=== PATIENT | female | born 1950 | race Two or more races ===

== ENCOUNTER → 2017-04-01 | Outpatient (REF) | payer MEDICARE, OTHER ==
[2017-04-01 14:56] LABS: ALBUMIN 4.3 GM/DL (3.2-5.2); ALBUMIN/GLOBULIN RATIO 1.43 (1.00-1.93); ALKALINE PHOSPHATASE 79 U/L (45-117); ALT/SGPT 19 U/L (12-78); ANION GAP 8 MEQ/L (8-16); AST/SGOT 17 U/L (7-37); BILIRUBIN,TOTAL 0.7 MG/DL (0.2-1.0); BLOOD UREA NITROGEN 12 MG/DL (7-18); CARBON DIOXIDE LEVEL 29 MEQ/L (21-32); CHLORIDE LEVEL 105 MEQ/L (98-107); CHOLESTEROL LEVEL 226 MG/DL (<200); CHOLESTEROL RISK RATIO 2.722 (<5); GLOMERULAR FILTRATION RATE > 60.0 (>45); GLUCOSE, FASTING 107 MG/DL (80-110); HDL CHOLESTEROL 83 MG/DL (>40); LDL CHOLESTEROL 117.2 MG/DL (<100); NON-HDL-C 143 MG/DL; POTASSIUM SERUM 4.2 MEQ/L (3.5-5.1); SODIUM LEVEL 142 MEQ/L (136-145); TOTAL PROTEIN 7.3 GM/DL (6.4-8.2); TRIGLYCERIDES LEVEL 129 MG/DL (<150)
[2017-04-01 15:05] LABS: BASO # 0.1 10^3/uL (0.0-0.2); EOS # 0.2 10^3/uL (0.0-0.50); EOS % 3.3 % (0.0-3.0); HEMATOCRIT 47.5 % (36.0-47.0); HEMOGLOBIN 15.5 g/dl (12.0-16.0); IMMATURE GRANULOCYTE % 0.2 % (0-0); LYMPH # 1.7 10^3/uL (1.5-4.5); LYMPH % 34.2 % (24.0-44.0); MEAN CORPUSCULAR HGB CONC 32.6 g/dl (32.0-36.5); MONO # 0.3 10^3/uL (0.0-0.8); MONO % 6.4 % (0.0-5.0); NEUTROPHILS # 2.7 10^3/uL (1.8-7.7); NEUTROPHILS % 54.9 % (36.0-66.0); PLATELET COUNT, AUTOMATED 199 10^3/uL (150-450); RED CELL DISTRIBUTION WIDTH 13.5 % (11.5-14.5); WHITE BLOOD COUNT 4.8 10^3/uL (4.0-10.0)
== END ==
LOC: M SFHCADAM 09:25
DX: Z00.00 Encounter for general adult medical examination without abnormal findings (principal)
CPT/HCPCS: 80053

== ENCOUNTER → 2017-09-04 | Outpatient (CLI) | payer MEDICARE, OTHER ==
[2017-09-04 12:47] LABS: BASO % 0.4 % (0.0-1.0); EOS # 0.1 10^3/uL (0.0-0.50); EOS % 0.8 % (0.0-3.0); HEMATOCRIT 43.9 % (36.0-47.0); HEMOGLOBIN 14.8 g/dl (12.0-15.5); IMMATURE GRANULOCYTE % 0.4 % (0-3.0); LYMPH # 1.3 10^3/uL (1.5-4.5); LYMPH % 16.1 % (24.0-44.0); MEAN CORPUSCULAR HEMOGLOBIN 31.6 pg (27.0-33.0); MEAN CORPUSCULAR HGB CONC 33.7 g/dl (32.0-36.5); MEAN CORPUSCULAR VOLUME 93.6 fl (80.0-96.0); MONO # 0.7 10^3/uL (0.0-0.8); MONO % 7.8 % (0.0-5.0); NEUTROPHILS # 6.2 10^3/uL (1.8-7.7); NEUTROPHILS % 74.5 % (36.0-66.0); PLATELET COUNT, AUTOMATED 178 10^3/uL (150-450); RED BLOOD COUNT 4.69 10^6/uL (4.00-5.40); RED CELL DISTRIBUTION WIDTH 13.2 % (11.5-14.5); WHITE BLOOD COUNT 8.3 10^3/uL (4.0-10.0)
[2017-09-04 13:14] LABS: URIC ACID 2.4 MG/DL (2.6-6.0)
== END ==
LOC: M ADAMS 10:19
DX: M25.531 Pain in right wrist (principal)
CPT/HCPCS: 84550

== ENCOUNTER → 2017-10-01 | Outpatient (REF) | payer MEDICARE, OTHER ==
[2017-10-01 12:40] LABS: CHOLESTEROL LEVEL 221 MG/DL (<200); CHOLESTEROL RISK RATIO 3.453 (<5); HDL CHOLESTEROL 64 MG/DL (>40); LDL CHOLESTEROL 135.2 MG/DL (<100); NON-HDL-C 157 MG/DL; TRIGLYCERIDES LEVEL 109 MG/DL (<150)
== END ==
LOC: M SFHCADAM 09:55
DX: E78.00 Pure hypercholesterolemia, unspecified (principal)
CPT/HCPCS: 80061

== ENCOUNTER → 2018-04-25 | Outpatient (CLI) | payer MEDICARE, OTHER ==
--- NOTE | 2018-04-25 16:34 | REP ---
Clinical: Low back pain. Technique: AP, lateral, flexion/extension, bilateral oblique and coned-down views of the lumbosacral spine. Findings: Age-related osteopenia and advanced multilevel degenerative changes include endplate sclerosis, marginal spurring, and hypertrophic facet changes. There is anterolisthesis at the L4-5 level of approximately 9 mm with associated disc space narrowing. No acute fracture / compression injury. Impression: Advanced multilevel degenerative changes. 9 mm anterolisthesis at the L4-5 level. No acute fracture / compression injury. Electronically Signed by Joni Carmen MD 04/25/2018 04:25 P
== END ==
LOC: M ADAMS 16:07
PROVIDERS: ATTEND Family Medicine
DX: M51.36 Other intervertebral disc degeneration, lumbar region (principal); M43.16 Spondylolisthesis, lumbar region; M54.5 Low back pain
CPT/HCPCS: 72114; G0463

== ENCOUNTER → 2018-09-17 | Outpatient (REF) | payer MEDICARE, OTHER ==
[2018-09-17 12:30] LABS: BASO # 0.1 10^3/uL (0.0-0.2); EOS # 0.3 10^3/uL (0.0-0.50); EOS % 6.3 % (0.0-3.0); HEMATOCRIT 46.3 % (36.0-47.0); HEMOGLOBIN 15.1 g/dl (12.0-15.5); LYMPH # 1.9 10^3/uL (1.5-4.5); LYMPH % 40.5 % (24.0-44.0); MEAN CORPUSCULAR HEMOGLOBIN 31.7 pg (27.0-33.0); MEAN CORPUSCULAR HGB CONC 32.6 g/dl (32.0-36.5); MEAN CORPUSCULAR VOLUME 97.1 fl (80.0-96.0); MONO # 0.3 10^3/uL (0.0-0.8); MONO % 6.3 % (0.0-5.0); NEUTROPHILS # 2.2 10^3/uL (1.8-7.7); NEUTROPHILS % 45.1 % (36.0-66.0); PLATELET COUNT, AUTOMATED 192 10^3/uL (150-450); RED BLOOD COUNT 4.77 10^6/uL (4.00-5.40); WHITE BLOOD COUNT 4.8 10^3/uL (4.0-10.0)
[2018-09-17 12:31] LABS: ALBUMIN 3.9 GM/DL (3.2-5.2); ALT/SGPT 21 U/L (12-78); BILIRUBIN,TOTAL 0.7 MG/DL (0.2-1.0); BLOOD UREA NITROGEN 10 MG/DL (7-18); CALCIUM LEVEL 9.1 MG/DL (8.8-10.2); CARBON DIOXIDE LEVEL 29 MEQ/L (21-32); CHLORIDE LEVEL 108 MEQ/L (98-107); CHOLESTEROL LEVEL 210 MG/DL (<200); CHOLESTEROL RISK RATIO 3.387 (<5); CREATININE FOR GFR 0.69 MG/DL (0.55-1.30); FREE T4 1.13 NG/DL (0.76-1.46); GLOMERULAR FILTRATION RATE > 60.0 (>45); GLUCOSE, FASTING 98 MG/DL (70-100); HDL CHOLESTEROL 62 MG/DL (>40); LDL CHOLESTEROL 127 MG/DL (<100); NON-HDL-C 148 MG/DL; POTASSIUM SERUM 4.6 MEQ/L (3.5-5.1); SODIUM LEVEL 142 MEQ/L (136-145); TOTAL PROTEIN 6.9 GM/DL (6.4-8.2); TRIGLYCERIDES LEVEL 107 MG/DL (<150)
== END ==
LOC: M SFHCADAM 08:51
PROVIDERS: ATTEND Family Medicine
DX: Z00.00 Encounter for general adult medical examination without abnormal findings (principal); E07.9 Disorder of thyroid, unspecified

== ENCOUNTER → 2019-04-22 | Outpatient (REF) | payer MEDICARE, OTHER | LOC: M SFHCADAM 09:05 | PROVIDERS: ATTEND Family Medicine | DX: F41.8 Other specified anxiety disorders (principal) | CPT/HCPCS: 84443; G0463 ==

== ENCOUNTER 2021-11-25 18:45 | Emergency (ER) | payer MEDICARE, OTHER ==
[~2021-11-25] VITALS: Ht 160 cm; Wt 59.1 kg
[2021-11-25] MEDS ORDERED: ESCI5SOL3 PO (19:37)
[2021-11-25] MEDS ORDERED: NS 500 ML IV ONE (20:05)
[2021-11-25 20:36] LABS: BASO % 0.2 % (0.0-1.0); HEMATOCRIT 37.2 % (36.0-47.0); HEMOGLOBIN 13.1 g/dl (12.0-15.5); LYMPH # 0.9 10^3/uL (1.5-5.0); LYMPH % 9.8 % (24.0-44.0); MEAN CORPUSCULAR HEMOGLOBIN 33.5 pg (27.0-33.0); MEAN CORPUSCULAR HGB CONC 35.2 g/dl (32.0-36.5); MEAN CORPUSCULAR VOLUME 95.1 fl (80.0-96.0); MONO # 0.6 10^3/uL (0.0-0.8); MONO % 6.9 % (2.0-8.0); NEUTROPHILS # 7.7 10^3/uL (1.5-8.5); NEUTROPHILS % 82.5 % (36.0-66.0); PLATELET COUNT, AUTOMATED 153 10^3/uL (150-450); RED BLOOD COUNT 3.91 10^6/uL (4.00-5.40); WHITE BLOOD COUNT 9.3 10^3/uL (4.0-10.0)
[2021-11-25] MEDS ORDERED: ISOVUE-370 76% 100ML VIAL As Ordered ONE (20:40)
[2021-11-25] MEDS ORDERED: BOOSTRIX/ADACEL VACCINE (DIPHTH/PERTUSS/ACELL/TETANUS) 0.5ML SYR IM ONE (20:45)
[2021-11-25 20:49] LABS: INR 1.04; PROTHROMBIN TIME 14.1 SECONDS (12.7-14.5)
[2021-11-25 20:50] LABS: PARTIAL THROMBOPLASTIN TIME 28.3 SECONDS (25.9-37.0)
[2021-11-25 21:24] LABS: MB/CK RELATIVE INDEX 1.37 (< OR =4)
[2021-11-25 21:25] LABS: ALBUMIN 3.7 GM/DL (3.2-5.2); ALT/SGPT 28 U/L (12-78); AMYLASE 35 U/L (25-115); BILIRUBIN,DIRECT 0.3 MG/DL (0.0-0.2); BILIRUBIN,TOTAL 1.2 MG/DL (0.2-1.0); ETHYL ALCOHOL (ETHANOL) < 0.003 % (0.000-0.010); LIPASE 60 U/L (73-393); TOTAL PROTEIN 6.4 GM/DL (6.4-8.2)
[2021-11-25 21:34] LABS: ABG BASE EXCESS -0.3 (-2.0-2.0); ABG HCO3 22.3 MEQ/L (22.0-26.0); ABG O2 SATURATION 95.5 % (95.0-99.0); ABG PARTIAL PRESSURE CO2 30.8 mmHg (35.0-45.0); ABG PARTIAL PRESSURE O2 70.8 mmHg (75.0-100.0); ABG STANDARD HCO3 24.2 MEQ/L (22.0-26.0); ABG TOTAL CO2 23.3 MEQ/L (23.0-31.0); ABG pH (ARTERIAL) 7.478 UNITS (7.350-7.450)
[2021-11-25 21:54] LABS: APPEARANCE, URINE MANUAL CLEAR (CLEAR); COLOR, URINE MANUAL YELLOW (YELLOW)
[2021-11-25 21:55] LABS: BILIRUBIN, URINE MANUAL NEGATIVE (NEGATIVE); GLUCOSE, URINE (UA) MANUAL NEGATIVE (NEGATIVE); KETONE, URINE MANUAL NEGATIVE (NEGATIVE); PROTEIN, URINE MANUAL TRACE mg/dL (NEGATIVE); SPECIFIC GRAVITY,URINE MANUAL 1.015 (1.002-1.035); UROBILINOGEN, URINE MANUAL NORMAL (NORMAL)
[2021-11-25 21:56] LABS: BLOOD URINE MANUAL POSITIVE (NEGATIVE); LEUKOCYTE ESTERASE, URINE MAN TRACE (NEGATIVE); NITRITE, URINE MANUAL NEGATIVE (NEGATIVE)
[2021-11-25 22:03] LABS: AMORPHOUS SEDIMENT, URINE SMALL AMOUNT (NEGATIVE); BACTERIA, URINE MOD AMOUNT; HYALINE CAST, URINE NONE SEEN /lpf (0-1); MUCUS, URINE SMALL AMOUNT (NEGATIVE); SQUAMOUS EPITHELIAL CELL URINE SMALL AMOUNT /hpf (SMALL AMT); TRANSITIONAL EPI CELLS, URINE SMALL AMOUNT /hpf
[2021-11-25 22:32] LABS: AMPHETAMINES LEVEL URINE NEGATIVE (NEGATIVE); BARBITURATES URINE NEGATIVE (NEGATIVE); BENZODIAZEPINES URINE NEGATIVE (NEGATIVE); CANNABINOIDS URINE NEGATIVE (NEGATIVE); COCAINE METABOLITE URINE NEGATIVE (NEGATIVE); METHADONE URINE NEGATIVE (NEGATIVE); OPIATES URINE NEGATIVE (NEGATIVE); PHENCYCLIDINE URINE NEGATIVE (NEGATIVE)
[2021-11-25 22:42] LABS: RSV AMPLIFICATION NEGATIVE (NEGATIVE)
[2021-11-25] MEDS ORDERED: LIDOCAINE W/EPINEPHRINE 1% 20ML VIAL As Ordered ONE (23:04)
[2021-11-25] MEDS ORDERED: LIDOCAINE W/EPINEPHRINE 1% 20ML VIAL SC ONE (23:05)
[2021-11-25 23:46] VITALS: BP 173/80
[2021-11-26] MEDS ORDERED: UNRESOLVED CLARIFICATION ENTRY XX SCH (00:01)
== END 2021-11-25 23:56 | disposition short-term general hospital (02) ==
LOC: M ED 18:45 → EDBD 18:45 → M ED 23:56
DX: S01.01XA Laceration without foreign body of scalp, initial encounter (principal); S22.42XA Multiple fractures of ribs, left side, initial encounter for closed fracture; S22.31XA Fracture of one rib, right side, initial encounter for closed fracture; S42.001A Fracture of unspecified part of right clavicle, initial encounter for closed fracture; S02.11GA Other fracture of occiput, right side, initial encounter for closed fracture; S22.038A Other fracture of third thoracic vertebra, initial encounter for closed fracture; W10.8XXA Fall (on) (from) other stairs and steps, initial encounter; Y92.018 Other place in single-family (private) house as the place of occurrence of the external cause; R04.89 Hemorrhage from other sites in respiratory passages; F41.1 Generalized anxiety disorder; H40.9 Unspecified glaucoma; Z88.1 Allergy status to other antibiotic agents; Z88.8 Allergy status to other drugs, medicaments and biological substances; Z79.899 Other long term (current) drug therapy
CPT/HCPCS: 12004; 36600; 70450; 71045; 71260; 72125; 74177; 80047; 80076; 80307; 81000; 82077; 82150; 82550; 82553; 82803; 83605; 83690; 84484; 85025; 85610; 85730; 86850; 86900; 86901; 87631; 90471; 90715; 93005; 93041; 94760; 96360; 96361; 99285; Q9967

== ENCOUNTER → 2022-07-10 | Outpatient (REF) | payer MEDICARE, OTHER ==
[~2022-07-10] MED LIST: ESCI5SOL3 PO
== END ==
LOC: M SFHCDERM 13:21
PROVIDERS: ATTEND Nurse Practitioner Family
DX: L57.0 Actinic keratosis (principal)

== ENCOUNTER → 2023-03-06 | Outpatient (CLI) | payer MEDICARE, OTHER | LOC: M RAD 16:54 | PROVIDERS: ATTEND Physician Assistant | DX: Z12.2 Encounter for screening for malignant neoplasm of respiratory organs (principal); F17.210 Nicotine dependence, cigarettes, uncomplicated ==

== ENCOUNTER 2023-08-09 08:16 | Day surgery (SDC) | payer MEDICARE, OTHER ==
[~2023-08-09] VITALS: Ht 157.5 cm; Wt 65.7 kg
[~2023-08-09 08:16] MED LIST changes: +CITR500T PO; +CITRTAB18 PO; +LEXA5TAB13 PO; +MELO15TA28 PO
[2023-08-09] MEDS: NS 1,000 ML IV ONE (09:47)
[2023-08-09] MEDS ORDERED: LIDOCAINE 2% 100MG/5ML SDV (FOR ANES.) As Ordered ONE (10:09)
[2023-08-09] MEDS ORDERED: propofoL 200 MG/20 ML VIAL As Ordered ONE (10:09)
[2023-08-09 10:50] VITALS: BP 147/67; O2SAT 97
== END 2023-08-09 11:04 | disposition home or self-care (01) ==
LOC: M OPP 08:16
PROVIDERS: ATTEND Surgery
DX: Z12.11 Encounter for screening for malignant neoplasm of colon (principal); Z12.12 Encounter for screening for malignant neoplasm of rectum; K64.1 Second degree hemorrhoids; Z90.49 Acquired absence of other specified parts of digestive tract; F41.9 Anxiety disorder, unspecified; F32.9 Major depressive disorder, single episode, unspecified; Z79.899 Other long term (current) drug therapy; F17.290 Nicotine dependence, other tobacco product, uncomplicated; Z88.1 Allergy status to other antibiotic agents

== ENCOUNTER 2023-11-14 20:05 | Emergency (ER) | payer MEDICARE, OTHER ==
[~2023-11-14] VITALS: Ht 157.5 cm; Wt 67.7 kg
[2023-11-15 01:46] VITALS: BP 164/75; TEMP 97.6; O2SAT 97
[2023-11-15] MEDS ORDERED: TRAM50TA2 PO (05:54)
== END 2023-11-15 06:15 | disposition home or self-care (01) ==
LOC: M ED 20:05
DX: S42.201A Unspecified fracture of upper end of right humerus, initial encounter for closed fracture (principal); Y92.019 Unspecified place in single-family (private) house as the place of occurrence of the external cause; Y93.9 Activity, unspecified; Y99.9 Unspecified external cause status; Z88.1 Allergy status to other antibiotic agents; Z79.899 Other long term (current) drug therapy

== ENCOUNTER → 2023-11-18 | Outpatient (CLI) | payer MEDICARE, OTHER ==
[~2023-11-18] MED LIST changes: +TRAM50TA2 PO
== END ==
LOC: M SOG 08:01
PROVIDERS: ATTEND Orthopaedic Surgery
DX: M25.511 Pain in right shoulder (principal)

== ENCOUNTER → 2023-11-26 | Outpatient (CLI) | payer MEDICARE, OTHER | LOC: M SOG 08:27 | PROVIDERS: ATTEND Orthopaedic Surgery | DX: S42.211A Unspecified displaced fracture of surgical neck of right humerus, initial encounter for closed fracture (principal); X58.XXXA Exposure to other specified factors, initial encounter; Y92.9 Unspecified place or not applicable ==

== ENCOUNTER → 2023-12-09 | Outpatient (CLI) | payer MEDICARE, OTHER | LOC: M SOG 07:27 | PROVIDERS: ATTEND Orthopaedic Surgery | DX: S42.211A Unspecified displaced fracture of surgical neck of right humerus, initial encounter for closed fracture (principal); Z53.9 Procedure and treatment not carried out, unspecified reason ==

== ENCOUNTER → 2023-12-11 | Outpatient (CLI) | payer MEDICARE, OTHER | LOC: M SOG 07:25 | PROVIDERS: ATTEND Orthopaedic Surgery | DX: Z53.9 Procedure and treatment not carried out, unspecified reason (principal) ==

== ENCOUNTER → 2023-12-12 | Outpatient (CLI) | payer MEDICARE, OTHER | LOC: M SOG 07:30 | PROVIDERS: ATTEND Orthopaedic Surgery | DX: S42.211A Unspecified displaced fracture of surgical neck of right humerus, initial encounter for closed fracture (principal); Y93.9 Activity, unspecified; Y92.9 Unspecified place or not applicable ==

== ENCOUNTER → 2024-01-10 | Outpatient (CLI) | payer MEDICARE, OTHER | LOC: M SOG 07:21 | PROVIDERS: ATTEND Orthopaedic Surgery | DX: S42.211P Unspecified displaced fracture of surgical neck of right humerus, subsequent encounter for fracture with malunion (principal) ==